=== PATIENT | male | born 1965 | race Hispanic/Latino ===

== ENCOUNTER 2018-01-13 18:15 | Emergency (ER) | payer OTHER | END 2018-01-13 20:05 | disposition home or self-care (01) | LOC: EDH 18:15 | DX: J06.9 Acute upper respiratory infection, unspecified (principal); I10 Essential (primary) hypertension; K21.9 Gastro-esophageal reflux disease without esophagitis; F43.10 Post-traumatic stress disorder, unspecified | CPT/HCPCS: 71045; 87804 ==

== ENCOUNTER 2022-04-04 09:38 | Day surgery (SDC) | payer OTHER ==
[2022-04-02 10:56] LABS: BASOPHILS % (AUTO) 0.3 % (0.0-5.0); EOSINOPHILS % (AUTO) 2.6 % (0.0-8.0); HEMATOCRIT 46.7 % (42-54); LYMPHOCYTES % (AUTO) 23.3 % (21.0-51.0); MEAN CORPUSCULAR HEMOGLOBIN 28.3 pg (27.0-33.0); MEAN CORPUSCULAR HGB CONC 32.8 g/dL (32.0-36.0); MEAN CORPUSCULAR VOLUME 86.5 fL (79-99); MONOCYTES % (AUTO) 6.9 % (3.0-13.0); NEUTROPHILS % (AUTO) 66.4 % (40.0-77.0); PLATELET COUNT (AUTO) 151 K/uL (130-400); RED CELL DISTRIBUTION WIDTH 13.2 % (11.0-15.5); WHITE BLOOD COUNT (AUTO) 8.9 K/uL (4.8-10.8)
[2022-04-02 11:08] LABS: CREATININE 1.1 mg/dL (0.5-1.5); POTASSIUM 4.8 mmol/L (3.5-5.1)
[2022-04-03 11:01] VITALS: BP 147/97
[2022-04-04] VITALS (17 sets, daily range): BP systolic 115–141; BP diastolic 74–94
[~2022-04-04] VITALS: Ht 175.3 cm; Wt 102.3 kg
[~2022-04-04 09:38] MED LIST: ACET-2743 PO; BUSP15TA3 PO; CETI10CA5 PO; LOSA100T58 PO; METF-446 PO; OMEP20CA12 PO; PROP80CA2 PO; ROSU20TA31 PO; SERT-440 PO
[2022-04-04] MEDS ORDERED: 0.9%NACL 1000ML 1,000 ML IV ONE (09:52)
[2022-04-04] MEDS: CEFAZOLIN SODIUM 1 GM VIAL IVP SCH ×2 (10:30→13:56)
[2022-04-04] MEDS ORDERED: LIDOCAINE PF 100MG/5ML (2%) SYRINGE 5ML ONE (12:37)
[2022-04-04] MEDS ORDERED: SUCCINYLCHOLINE CHLORIDE 20 MG/ML 10 ML VIAL ONE (12:37)
[2022-04-04] MEDS ORDERED: MIDAZOLAM HCL 1 MG/ML 2ML VIAL ONE (12:38)
[2022-04-04] MEDS ORDERED: PROPOFOL 10 MG/ML 20ML VIAL IV ONE (12:38)
[2022-04-04] MEDS ORDERED: FENTANYL CITRATE PF 50 MCG/1 ML 2ML VIAL ONE (12:38)
[2022-04-04] MEDS ORDERED: ROCURONIUM 10MG/1ML SYR 10 MG/ML ML ONE (12:38)
[2022-04-04] MEDS ORDERED: ROPIVACAINE 0.5% 5MG/ML 30ML IJ ONE (13:21)
[2022-04-04] MEDS ORDERED: EPINEPHRINE 1 MG/ML 30ML VIAL IJ ONE (13:42)
[2022-04-04] MEDS ORDERED: EPHEDRINE SULFATE 50 MG/ML AMPULE ONE (13:45)
[2022-04-04] MEDS ORDERED: GLYCOPYRROLATE 1 MG/5 ML SYRINGE ONE (14:23)
[2022-04-04] MEDS ORDERED: HYDR-4060 PO (15:33)
[2022-04-04] MEDS ORDERED: IBUP-2077 PO (15:33)
[2022-04-04] MEDS ORDERED: CEPH500B PO (15:33)
== END 2022-04-04 17:00 | disposition home or self-care (01) ==
LOC: DAH 09:38
PROVIDERS: ATTEND Orthopaedic Surgery
DX: M75.121 Complete rotator cuff tear or rupture of right shoulder, not specified as traumatic (principal); M19.011 Primary osteoarthritis, right shoulder; M75.41 Impingement syndrome of right shoulder; M65.811 Other synovitis and tenosynovitis, right shoulder; G89.29 Other chronic pain; I10 Essential (primary) hypertension; E66.9 Obesity, unspecified; Z79.899 Other long term (current) drug therapy; Z98.890 Other specified postprocedural states; Z79.84 Long term (current) use of oral hypoglycemic drugs; Z72.89 Other problems related to lifestyle; Z82.49 Family history of ischemic heart disease and other diseases of the circulatory system; Z68.32 Body mass index [BMI] 32.0-32.9, adult
CPT/HCPCS: 29822; 29824; 29826; 36415; 64415; 76942; 80048; 82948; 85025; 87635; A4213; A4215; A4221; A4222; A4223; A4565; A4600; A4649 ×2; A4663; A5120; A6204; C9803; G0168; J0171; J0330; J0690; J2001; J2704; J2795; J3490 ×2; J7030 ×2; J2250; J3010

== ENCOUNTER → 2025-10-06 | Outpatient (CLI) | payer OTHER ==
[~2025-10-06] MED LIST changes: +CEPH500B PO; +HYDR-4060 PO; +IBUP-2077 PO; -LOSA100T58 PO; +LOSA100T59 PO; -ROSU20TA31 PO; +ROSU20TA98 PO
--- NOTE | 2025-10-06 21:57 | HMCIMG ---
EXAM: MR KNEE LEFT CLINICAL HISTORY: Unspecified internal derangement of the left knee. TECHNIQUE: Multiplanar magnetic resonance images of the left knee obtained without intravenous contrast. CONTRAST: NONE COMPARISON: None FINDINGS: MENISCI: There is thickening with intrasubstance edema involving the body and the posterior horn of the medial meniscus. There is an inferior flap tear of the junction of the body and posterior horn. Slight extrusion of the medial meniscus out of the joint compartment is present. There is thickening with intrasubstance edema involving the medial meniscotibial and meniscofemoral ligaments, suggestive of grade I sprain/mucoid changes. There is thickening with intrasubstance edema involving the entire lateral meniscus, suggestive of mild myxoid degeneration. No parameniscal ossicle. No ganglion cyst formation. CRUCIATE LIGAMENTS: There is thickening with intrasubstance edema involving the posteromedial, the anterolateral bundles of the anterior cruciate ligament, suggestive of myxoid changes. Posterior cruciate ligament is intact. COLLATERAL LIGAMENTS: The superficial component of the medial collateral ligament is unremarkable. The fibular collateral ligament is unremarkable. The popliteal tendon is intact. JOINT: Mild knee joint synovial effusion is present. Minimal infrapatellar bursal effusion is present. There is a small Ordonez's cyst measuring 1 x 0.6 x 1.5 cm. No synovial hypertrophy or intra-articular body. CARTILAGE: Articular cartilage intact. BONE: There are marginal osteophytes along the medial, lateral tibial and femoral condyles, superior and inferior poles of patella with spiking of the tibial intercondylar eminence. There is a sesamoid bone within the patellar tendon near insertion upon tibia. No fracture or abnormal bone marrow signal. MUSCLES: Unremarkable. OTHER SOFT TISSUES: There is subcutaneous edema along the anteromedial aspect of the knee without focal collection. IMPRESSION: 1. Inferior flap tear at the junction of the body and posterior horn of the medial meniscus with slight extrusion. 2. 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 3. Mild knee osteoarthritis. /Robbins
== END | disposition home or self-care (01) ==
LOC: RAH 14:43
PROVIDERS: ATTEND Emergency Medicine Emergency Medical Services
DX: S83.242A Other tear of medial meniscus, current injury, left knee, initial encounter (principal); M23.92 Unspecified internal derangement of left knee; M17.12 Unilateral primary osteoarthritis, left knee; M25.762 Osteophyte, left knee; M71.22 Synovial cyst of popliteal space [Baker], left knee; M25.462 Effusion, left knee; R60.0 Localized edema; X58.XXXA Exposure to other specified factors, initial encounter; Y93.89 Activity, other specified; Y92.89 Other specified places as the place of occurrence of the external cause; Y99.8 Other external cause status
CPT/HCPCS: 73721